=== PATIENT | female | born 1980 | race Caucasian/White ===

== ENCOUNTER 2018-06-02 08:47 | Emergency (ER) | payer MEDICAID ==
[~2018-06-02] VITALS: Ht 162.6 cm; Wt 81.8 kg
[~2018-06-02 08:47] MED LIST: EFFIENT10 MG PO; LISINOPRIL10 MG PO
[2018-06-02 08:55] VITALS: Ht 162.6 cm; Wt 81.8 kg
[2018-06-02] MEDS ORDERED: RANEXA1000 MG PO (08:57)
[2018-06-02] MEDS ORDERED: ISOSORBIDE MONO30 M1 PO (08:57)
[2018-06-02 09:28] LABS: BASOPHILS 0.1 % (0-2); EOSINOPHILS 0.6 % (0-7); HEMOGLOBIN 14.4 g/dL (12-16); IMMATURE GRANULOCYTES 0.2 % (0-5); LYMPHOCYTES 5.8 % (15-50); MCH 29.7 pg (26.0-34.0); MCHC 34.3 g/dL (31.0-37.0); MCV 86.6 fL (80.0-100.0); MONOCYTES 6.2 % (2-11); NEUTROPHILS 87.1 % (40-80); PLATELET COUNT 212 10x3/uL (130-400); RBC 4.85 10x6/uL (4.00-5.40); RDW 14.1 % (11.5-14.5)
[2018-06-02 09:50] LABS: APPEARANCE SL CLDY (CLEAR); BILIRUBIN NEGATIVE (NEGATIVE); COLOR YELLOW (YELLOW); GLUCOSE NEGATIVE (NEGATIVE); KETONE NEGATIVE (NEGATIVE); NITRITE POSITIVE (NEGATIVE); PROTEIN 3+ mg/dL (NEGATIVE)
[2018-06-02 09:51] LABS: ALBUMIN 3.4 g/dL (3.4-5.0); ALKALINE PHOSPHATASE 88 U/L (46-116); ALT (SGPT) 22 U/L (10-68); BACTERIA MANY /hpf (NONE SEEN); BILIRUBIN - TOTAL 0.87 mg/dL (0.2-1.3); CALC OSMOLALITY 271 mosm/kg (275-300); CALCIUM 8.8 mg/dL (8.5-10.1); CARBON DIOXIDE 25.7 mmol/L (21.0-32.0); CHLORIDE - SERUM 98 mmol/L (98-107); CREATININE - SERUM 0.7 mg/dL (0.6-1.3); EPITHELIAL CELLS 0-5 /hpf (0-5); GLUCOSE 133 mg/dL (74-106); MUCUS <1+ /lpf (NONE SEEN); POTASSIUM - SERUM 3.6 mmol/L (3.5-5.1); PROTEIN - SERUM 8.2 g/dL (6.4-8.2); RED CELLS - URINE 0-5 /hpf (0-5); SODIUM 135 mmol/L (136-145); UREA NITROGEN 12 mg/dL (7-18); WHITE CELLS - URINE 25-50 /hpf (0-5); eGFR NON AFRICAN AMERICAN > 90 mL/min (90-120)
[2018-06-02 10:02] LABS: CKMB 0.5 U/L (0.0-3.6); CREATINE KINASE 36 UL (21-215)
[2018-06-02 10:04] LABS: TROPONIN-I < 0.017 ng/mL (0.000-0.060)
[2018-06-02] MEDS ORDERED: MACROBID100 MG PO (10:06)
[2018-06-02] MEDS ORDERED: VOLTAREN75 MG PO (10:06)
[2018-06-02 12:01] VITALS: BP 161/94
== END 2018-06-02 12:02 | disposition home or self-care (01) ==
LOC: D.ER 08:47
PROVIDERS: Emergency Medicine
DX: R10.9 Unspecified abdominal pain (principal); N39.0 Urinary tract infection, site not specified

== ENCOUNTER 2020-08-16 09:21 | Emergency (ER) | payer OTHER ==
[2020-02-23 19:08] VITALS: BMI 30.9
[~2020-08-16 09:21] MED LIST changes: +BAYER CHEWABLE81 MG PO; +COZAAR50 MG PO; +ISOSORBIDE MONO30 M1 PO; +MACROBID100 MG PO; +METOPROLOL TART50 MG PO; +PLAVIX75 MG PO; +RANEXA1000 MG PO; +TOPROL XL25 MG PO; +VOLTAREN75 MG PO; +XANAX0.25 MG PO
== END 2020-08-16 11:00 | disposition left against medical advice (07) ==
LOC: D.ER 09:21
DX: K46.9 Unspecified abdominal hernia without obstruction or gangrene (principal)